=== PATIENT | female | born 1985 | race Caucasian/White ===

== ENCOUNTER 2019-06-29 10:06 | Outpatient (RCR) | payer BC, SELFPAY ==
[2019-06-29] MEDS: RHO(D) IMMUNE GLOBULIN 300 MCG SYRINGE IM (19:54)
== END 2019-08-08 08:19 | disposition home or self-care (01) ==
LOC: ANHOBOP 10:06
PROVIDERS: Visit Provider Advanced Practice Midwife
DX: Z29.13 Encounter for prophylactic Rho(D) immune globulin (principal); O36.0930 Maternal care for other rhesus isoimmunization, third trimester, not applicable or unspecified; Z3A.00 Weeks of gestation of pregnancy not specified
CPT/HCPCS: 36415; 86900; 86901; 90384; 96372; J2790

== ENCOUNTER 2019-09-20 06:12 | Inpatient (IN) | payer BC, SELFPAY ==
[2019-09-20] VITALS (57 sets, daily range): BP systolic 79–142; BP diastolic 40–89; PULSE 64–155; RESP 16–18; TEMP 36.8–37.4; O2SAT 98–100; BMI 25.0
[2019-09-20] MEDS: LACTATED RINGERS 1,000 ML 125 ML IV CONT ×2 (06:58→11:11)
[2019-09-20] MEDS: OXYTOCIN 30 UNITS/NS 500 ML 30 UNITS/500 ML BAG IV CONT (06:59)
[2019-09-20 07:11] LABS: Basophils Percent Auto 0.3 % (0.2-1.2); Eosinophils Absolute Auto 0.1 K/mm3 (0-0.3); Eosinophils Percent Auto 1.2 % (0-4.4); Hematocrit 38.2 % (37.0-47.0); Hemoglobin 12.7 g/dL (12.0-15.0); Immature Granulocyte Absolute 0.06 K/mm3 (0.00-0.031); Immature Granulocyte Percent A 0.6 % (0-0.5); Lymphocytes Absolute Auto 2.73 K/mm3 (0.9-3.2); Lymphocytes Percent Auto 29.3 % (18.3-44.2); Mean Corpuscular HGB Conc 33.2 g/dl (32-36); Mean Corpuscular Hemoglobin 29.3 pg (26-34); Mean Corpuscular Volume 88.2 fl (80-100); Mean Platelet Volume 10.8 fl (7.4-10.4); Monocytes Absolute Auto 0.6 K/mm3 (0.1-0.6); Monocytes Percent Auto 6.9 % (2.6-8.5); Neutrophils Absolute Auto 5.8 K/mm3 (1.3-6.7); Neutrophils Percent Auto 61.7 % (45.5-73.1); Platelet Count Result 241 k/mm3 (150-375); Red Blood Count 4.33 M/mm3 (4.2-5.4); Red Cell Distribution Width 14.6 % (11.5-14.5); White Blood Count 9.3 K/mm3 (4.5-10.0)
--- NOTE | 2019-09-20 07:49 | WPDOBADMIT ---
Obstetrics - Admit Note Admission Note: 34 y/o @ 40 weeks here for elective induction of labor. Cervix 4/-2 AROM small amount of clear odorless fluid. Anticipate record reviewed. No pertinent additions to the history and/or any subsequent changes in the physical findings that are not consistent with the expected course of the were found. Additions to the history and/or subsequent changes in the physical findings follow. None.
--- NOTE | 2019-09-20 08:44 | LDADM ---
This patient, Teressa Cadena, was admitted to Labor/Delivery/Recovery 103 on 09/20/19 at 06:12. Plans for labor, pain management and were discussed with patient. Patient/family oriented to hospital policies and general routines including ID bracelet, bed and alarms, visiting hours, pain management, procedures, bathroom and other care routines, personal items, smoking policy, room service/diet and guest tray routines, infant security routines, and visiting hours. Patient/Family are encouraged to report perceived risks to care and to ask questions if they do not understand what they are told or what they should do. See OBIX for further documentation.
[2019-09-20 10:24] LABS: Rapid Plasma Reagin Non-Reactive (NonReactive)
--- NOTE | 2019-09-20 11:53 | WPDANESEPPF ---
Anes - Initial Pre Proc Eval Date/Time: 09/20/19 11:53 Surgeon: Benjamin Joseph MD Pre Op Diagnosis: Induction of Labor Patient Data Age: 34 Gender: F Height: 5 ft 9 in Weight: 77 kg Last Vital Signs Temp 36.8 C 09/20/19 10:05 Pulse 98 09/20/19 11:50 BP 102/60 09/20/19 11:50 Pulse Ox 100 09/20/19 11:51 Allergies Allergy/AdvReac Type Severity Reaction Status Date / Time Sulfa (Sulfonamide Allergy Unknown Unverified 07/01/17 14:33 Antibiotics) Home Medications Medication Instructions Recorded Confirmed Type PNV cmb#95-ferrous fumarate-FA 1 tablet PO DAILY 08/21/19 08/21/19 History [] cholecalciferol (vitamin D3) 25 mcg PO DAILY 08/21/19 08/21/19 History [Vitamin D3] ferrous sulfate [Iron (ferrous 325 mg PO DAILY 08/21/19 08/21/19 History sulfate)] Laboratory Tests 09/20/19 09/20/19 09/20/19 06:51 06:51 06:51 WBC 9.3 K/mm3 K/mm3 (4.5-10.0) RBC 4.33 M/mm3 M/mm3 (4.2-5.4) Hgb 12.7 g/dL g/dL (12.0-15.0) Hct 38.2 % % (37.0-47.0) MCV 88.2 fl fl (80-100) MCH 29.3 pg pg (26-34) MCHC 33.2 g/dl g/dl (32-36) RDW 14.6 % H % (11.5-14.5) Plt Count 241 k/mm3 k/mm3 (150-375) MPV 10.8 fl H fl (7.4-10.4) Immature Gran % (Auto) 0.6 % H % (0-0.5) Neut % (Auto) 61.7 % % (45.5-73.1) Lymph % (Auto) 29.3 % % (18.3-44.2) [place] % (Auto) 6.9 % % (2.6-8.5) Eos % (Auto) 1.2 % % (0-4.4) Baso % (Auto) 0.3 % % (0.2-1.2) Lymph # (Auto) 2.73 K/mm3 K/mm3 (0.9-3.2) [place] # (Auto) 0.6 K/mm3 K/mm3 (0.1-0.6) Eos # (Auto) 0.1 K/mm3 K/mm3 (0-0.3) Baso # (Auto) 0.0 K/mm3 K/mm3 (0.0-0.1) Abs Immat Gran (auto) 0.06 K/mm3 H K/mm3 (0.00-0.031) Absolute Neuts (auto) 5.8 K/mm3 K/mm3 (1.3-6.7) Absolute Nucleated RBC 0.0 K/mm3 K/mm3 (0.0-0.012) Nucleated RBC % 0.0 % % (0.0-0.2) RPR Non-reactive (NonReactive) Blood Type A Negative Antibody Screen Negative Patient hx anesthesia problems: none Family hx anesthesia problems: none PMFSH Social History Social History Smoking status: Never smoker Substance use: never Gender identity (if verbalized by the patient): Female Spiritual care concerns: No Anes - Eval Final PreProcedure Day of Procedure 09/20/19 11:53 Patient weight: normal Neurological: alert and oriented ASA classification: II Emergent: no Anesthetic plan: proceed Anesthesia type and monitoring: regional epidural and standard monitoring Informed Consent: The patient's anesthetic plan and its attendant risks and benefits were discussed with the patient/family/POA. Questions were solicited and answers provided to the satisfaction of the patient/family/POA.
--- NOTE | 2019-09-20 12:38 | PM.OBPRVD ---
OB - Delivery Note Procedure Delivery date: 09/20/19 Induction method: per pitocin protocol Delivery monitor: external FHT and external uterine Episiotomy description: None Laceration description: Perineal - 1st Degree Delivery repair: vicryl Estimated blood loss (mL): 92 Anesthesia type: Epidural Baby Date of : 09/20/19 Time of : 12:23 Weeks of gestation at delivery: 40 Weight (pounds): 8 Weight (ounces): 9 presentation: vertex position: Right Occiput Anterior Placenta delivery description: Spontaneous cord vessel description: 3 Vessels score one minute: 9 score five minutes: 9 Narrative: Mother and baby in stable condition. Cord gasses collected by staff.
[2019-09-20] MEDS: BENZOCAINE 20% AER SPR (*SP) 56 GM CAN 1 SPRAY TOPICAL (14:58)
[2019-09-20] MEDS: WITCH HAZEL 40 PADS 1 PAD TOPICAL (14:58)
--- NOTE | 2019-09-20 15:27 | PC.NURSE ---
Patient transferred to post room #290. Support person present. Oriented to unit, room, information board, rooming in, admission packet and security measures. Patient verbalizes understanding.
[2019-09-20] MEDS: ACETAMINOPHEN 325 MG TABLET 650 MG PO ×2 (17:23→23:01)
[2019-09-20] MEDS: IBUPROFEN 600 MG TABLET PO (20:37)
[2019-09-21] MEDS: IBUPROFEN 600 MG TABLET PO ×3 (04:44→19:05)
[2019-09-21 05:41] LABS: Hematocrit 34.2 % (37.0-47.0); Hemoglobin 11.2 g/dL (12.0-15.0)
--- NOTE | 2019-09-21 07:27 | PM.OBPNVD ---
OB - PN: Subj Subjective Date/time seen: 09/21/19 07:27 Patient comments: no complaints, pain well controlled and other (Lochia similar to menses) baby status: doing well OB - PN: Obj Data Labs CBC & Chem 7: 09/21/19 04:42 Labs: Laboratory Results - last 24 hr 09/20/19 09/20/19 09/21/19 06:51 06:51 04:42 Hgb 11.2 L Hct 34.2 L RPR Non-reactive Blood Type A Negative Antibody Screen Negative Screen Baby's Blood Type Baby's CODY Doses of RhIg Required 09/21/19 04:42 Hgb Hct RPR Blood Type A Negative Antibody Screen Negative Screen Negative Baby's Blood Type O pos Baby's CODY Negative Doses of RhIg Required 1 OB - PN A/P Plan day: 1 (s/p vaginal delivery, doing well) Plan: routine care Time Spent With Patient Time: Total time spent is greater than 50% in coordination of care (as documented) at patient's floor/unit and/or counseling patient: Exam Const: General: no acute distress GI: Inspection: other (Fundus firm and nontender at umbilicus) GI Palp: Yes Soft to palpation and No Tenderness to palpation present (GI) Extrem: General: no edema
[2019-09-21 08:30] VITALS: BP 112/76; PULSE 74; RESP 16; TEMP 36.6; O2SAT 100
[2019-09-21] MEDS: DOCUSATE SODIUM 100 MG CAPSULE PO (09:00)
[2019-09-21] MEDS: ACETAMINOPHEN 325 MG TABLET 650 MG PO ×2 (09:00→14:53)
[2019-09-21] MEDS: MULTIVIT/MIN/PREN/FOL AC/IRON TABLET 1 TAB PO (09:00)
--- NOTE | 2019-09-21 10:40 | PC.NURSE ---
Mother called out for assist with feeding, reporting tenderness. Reviewed feeding cues, frequencies, duration of feedings, feeding elimination flow sheet, and signs of adequate intake. Demonstrated stimulation techniques to wake for feeding. Observed mother latching in cradle positioning allowing to self attach with shallow latch. Reviewed positioning/alignment cross cradle, holding breast in U hold and asymmetrical latch on. was able to latch correctly. nursed eagerly, with steady draws and frequent swallowing noted. Reviewed signs of a correct latch, effective nursing and suck swallow ratio. was able to maintain latch without discomfort to mother. Mother reports infant has not been latching as deeply or feeding as continuous. Nipple care reviewed. Suggested mother stimulate while feeding to keep infant awake and nursing effectively for increased intake and assist with maintaining deep latch. Instructed mother to call out for RN assistance if she is unable to latch for feeding or she has discomfort with nursing. Instructed feeding should be initiated three hours from start of last feeding or if feeding cues are noted before. Mother voiced understanding of information shared.
--- NOTE | 2019-09-21 14:26 | WPDANLDPN2 ---
Anes-Prog Note L&D Date/Time: 09/21/19 14:26 Comfortable throughout: labor and delivery Neuraxial method: epidural Epidural/Spinal procedure site: clean & non-tender Neuro status: Neuro function grossly intact. Cardiovascular status: normal Respiratory status: normal Airway patency: baseline Mental status: baseline Post-Op hydration status: normal Vital Signs: Last Vital Signs Temp 98 F 09/21/19 08:30 Pulse 74 09/21/19 08:30 Resp 16 09/21/19 08:30 BP 112/76 09/21/19 08:30 Pulse Ox 100 09/21/19 08:30 Patient feedback: Patient satisfied with anesthetic care.
[2019-09-21] MEDS: RHO(D) IMMUNE GLOBULIN 300 MCG SYRINGE IM (14:54)
[2019-09-21 20:00] VITALS: BP 118/73; PULSE 87; RESP 18; TEMP 36.3
[2019-09-22] MEDS: ACETAMINOPHEN 325 MG TABLET 650 MG PO (02:20)
--- NOTE | 2019-09-22 07:52 | PM.OBPNVD ---
OB - PN: Subj Subjective Date/time seen: 09/22/19 07:52 Patient comments: no complaints, pain well controlled and tolerating diet OB - PN: Obj Data Labs CBC & Chem 7: 09/21/19 04:42 Labs: Laboratory Results - last 24 hr 09/21/19 04:42 Blood Type A Negative Antibody Screen Negative Screen Negative Baby's Blood Type O pos Baby's CODY Negative Doses of RhIg Required 1 OB - PN A/P Plan day: 2 Plan: routine care and discharge home Time Spent With Patient Time: Total time spent is greater than 50% in coordination of care (as documented) at patient's floor/unit and/or counseling patient: Exam Const: General: comfortable and no acute distress Resp: Effort & Inspection: normal respiratory effort Auscultation: no rales, no rhonchi and no wheezes Cardio: Rate: regular rate Heart sounds: no click, no murmurs and no rubs GI: GI Palp: Yes Soft to palpation and No Tenderness to palpation present (GI) Auscultation: normal bowel sounds Extrem: General: normal to inspection, no pedal edema and no calf tenderness
--- NOTE | 2019-09-22 07:53 | PM.OBDSVD ---
DS: Discharge Diagnosis Discharge Diagnosis (1) Term : Code(s): Z34.90 - Encounter for supervision of normal , unspecified, unspecified trimester Status: Acute OB - DS: Summary OB Procedures : None OB Procedures Intrapartum: Spontaneous Vag Delivery OB Procedures: : None Peripartum Data Infant Delivery Method: Natural Vaginal complications: none Status at Discharge Functional status at discharge: independent ambulation Time Spent with Patient Time attestation: Total time spent providing and/or coordinating discharge services: DS: Data Data Completed and Pending Labs on day of discharge: Labs from last 24 hours 09/21/19 04:42 Blood Type A Negative Antibody Screen Negative Screen Negative Baby's Blood Type O pos Baby's CODY Negative Doses of RhIg Required 1 Discharge Plan Discharge Consulting providers: Amando Steven Discharging Clinician: Benjamin Joseph Patient Disposition: Home, Self-Care Activity: pelvic rest Diet: regular Patient Instructions: Antibiotic Form Stand Alone Forms: General Discharge Information Follow-up/Referrals: Benjamin Joseph MD [Physician] - Discharge Medications: Continued ferrous sulfate [Iron (ferrous sulfate)] 325 mg (65 mg iron) Tablet 325 mg PO DAILY RF: 0 cholecalciferol (vitamin D3) [Vitamin D3] 25 mcg (1,000 unit) Capsule 25 mcg PO DAILY RF: 0 PNV cmb#95-ferrous fumarate-FA [] 28 mg iron- 800 mcg Tablet 1 tablet PO DAILY RF: 0 Date of admission: 09/20/19 06:12 Primary Care Provider: PHYSICIAN,CYTOGENETIC TECHNICIAN Admitting Provider: Benjamin Joseph Attending physician on admission: Benjamin Joseph
[2019-09-22 08:20] VITALS: BP 109/64; PULSE 72; RESP 16; TEMP 36.3
[2019-09-22] MEDS: MULTIVIT/MIN/PREN/FOL AC/IRON TABLET 1 TAB PO (09:10)
[2019-09-22] MEDS: IBUPROFEN 600 MG TABLET PO (09:10)
[2019-09-22] MEDS: TETANUS,DIPHTHERIA,AC PERTUSSIS ADULT (0.5 ML) BOOSTRIX IM (09:11)
--- NOTE | 2019-09-22 11:30 | PC.NURSE ---
Observed mother is able to independently latch with appropriate positioning/alignment. She denies any nipple discomfort, is feeding as required and waking infant to feed if needed. has had 9 effective feedings in the past 24 hours, and is currently meeting outcomes for weight, output, jaundice and feeding frequencies. Mother states she feels confident to continue effective at home, reporting previous suggestions for deep latch have greatly helped. Reviewed transition to breast milk, signs of adequate intake, and engorgement/relief. Instructed to call ICP if intake/output less than required. Reviewed regular medications mother is taking. Information provided per Allison. Reviewed community resources on the [facility] website and in the Mom/Baby guide. Information on outpatient services provided. Mother has no further questions at this time.
[2019-09-25 11:03] VITALS: BP 119/80; PULSE 97; RESP 16; TEMP 36.6; O2SAT 100
== END 2019-09-22 12:07 | disposition home or self-care (01) | DRG 807 ==
LOC: ANHLDR 06:15 → ANHOB2 15:46
PROVIDERS: Advanced Practice Midwife; Admitting Provider Obstetrics & Gynecology; Visit Provider Obstetrics & Gynecology
DX: O70.0 First degree perineal laceration during delivery (principal); Z37.0 Single live birth; Z3A.40 40 weeks gestation of pregnancy
CPT/HCPCS: 36415; 85014; 85018; 85025; 85461; 86592; 86850; 86900; 86901; 90384; 90715; A9270; J2590; J2790; J2795; J7120

== ENCOUNTER 2021-08-18 10:51 | Emergency (ER) | payer BC, SELFPAY ==
[2021-08-18 11:14] VITALS: BP 124/81; PULSE 100; RESP 18; TEMP 36.3; O2SAT 100
--- NOTE | 2021-08-18 11:35 | ED.URI ---
HPI - URI/Sore Throat General Chief Complaint: Upper Respiratory Infection Stated Complaint: sorethroat Time Seen by Provider: 08/18/21 11:35 Source: patient Mode of arrival: ambulatory Limitations: no limitations History of Present Illness HPI Narrative: 36-year-old female presents with complaint of fatigue, sweating, sore throat 3 days. Reports that swallowing feels like swallowing razor blades . Positive nausea but patient is . Due date is March 21. Denies cough, congestion. No known strep exposure. All systems reviewed and negative except as noted above. Related Data Home Medications Medication Instructions Recorded Confirmed vits 75-iron 28 mg-folic 1 pkg PO DAILY 08/18/21 08/18/21 acid 800 mcg-omega3 440 mg oral pack Allergies Allergy/AdvReac Type Severity Reaction Status Date / Time Sulfa (Sulfonamide Allergy Mild Itching Verified 08/18/21 11:04 Antibiotics) Review of Systems Review of Systems: CONSTITUTIONAL: Denies fever, chills. Reports sweats and fatigue EYES: Denies visual changes, redness, or discharge. ENT: Denies rhinorrhea, congestion. Reports sore throat. Denies otalgia. CARDIOVASCULAR: Denies chest pain, palpitations, or edema. RESPIRATORY: Denies cough or dyspnea. GASTROINTESTINAL: Denies abdominal pain, nausea, vomiting, or diarrhea. GENITOURINARY: Denies dysuria or hematuria. SKIN: Denies rash or itching. MUSCULOSKELETAL: Denies back pain, joint pain, or myalgia. NEUROLOGIC: Denies headache, numbness, or weakness. PSYCHIATRIC: Denies anxiety or depression. All other systems reviewed are negative, except as documented in HPI. [facility] Past Medical History Medical History (Updated 08/18/21 @ 11:49 by Iza Pardo NP) Anxiety Encounter to establish care Family History Family History (Updated 08/22/20 @ 14:59 by Alyssa Sosa MA) Father Diabetes mellitus Hypertension Mother Hypertension Grandparent Diabetes mellitus Heart disease Social History Social History (Updated 08/22/20 @ 15:00 by Alyssa Sosa MA) Smoking status: Never smoker Alcohol intake: current Alcohol use details: beer/wine Substance use: never Gender identity (if verbalized by the patient): Female Spiritual care concerns: No Comments At time of signature, agree with nursing past medical, surgical, social and family history. There is no relevant family history pertinent to the presenting complaint. Exam Narrative: GENERAL: This is a well-nourished, well-developed patient, in no apparent distress. HEAD: normocephalic, atraumatic. EYES: PERRL. Sclera clear/white. Vision is grossly intact. EARS: External ears normal, auditory canals clear and without drainage, TMs normal without perforation. Hearing grossly intact. NOSE: External nose normal with no obvious nasal discharge, nares without redness, no rhinorrhea. THROAT: Mucous membranes moist, erythema posterior pharynx NECK: Neck supple, tender enlarged cervical lymph nodes, no masses or thyromegaly. CARDIOVASCULAR: Regular rate and rhythm without murmurs, gallops, or rubs. RESPIRATORY: Clear to auscultation. Breath sounds equal bilaterally. No wheezes, rales, or rhonchi. SKIN: warm, Dry, intact with no suspicious lesions or rash, good texture and turgor. NEURO: awake, alert, and oriented to person, place and time. There were no obvious focal neurologic abnormalities. EXTREMITIES: Normal range of motion to all extremities. Course Course Level of Care: Express Care Visit Vital Signs Vital signs: Vital Signs Temperature 36.3 C L 08/18/21 11:14 Pulse Rate 100 08/18/21 11:14 Respiratory Rate 18 08/18/21 11:14 Blood Pressure 124/81 08/18/21 11:14 Pulse Oximetry 100 08/18/21 11:14 Oxygen Delivery Room Air 08/18/21 11:14 Temperature 36.3 C L 08/18/21 11:14 Pulse Rate 100 08/18/21 11:14 Respiratory Rate 18 08/18/21 11:14 Blood Pressure 124/81 08/18/21 11
== END 2021-08-18 11:51 | disposition home or self-care (01) ==
PROVIDERS: Emergency Provider Nurse Practitioner Family; PCP Nurse Practitioner Family
DX: O99.519 Diseases of the respiratory system complicating pregnancy, unspecified trimester (principal); Z3A.00 Weeks of gestation of pregnancy not specified; J02.0 Streptococcal pharyngitis
CPT/HCPCS: 87880; 99213; G0463

== ENCOUNTER 2022-01-22 09:17 | Outpatient (RCR) | payer BC, SELFPAY ==
[2022-01-25] MEDS: RHO(D) IMMUNE GLOBULIN 300 MCG/2 ML SYRINGE IM (12:08)
== END 2022-04-22 23:59 | disposition home or self-care (01) ==
LOC: ANHLAB 09:17
PROVIDERS: PCP Nurse Practitioner Family; Visit Provider Obstetrics & Gynecology
DX: Z29.13 Encounter for prophylactic Rho(D) immune globulin (principal); O36.0130 Maternal care for anti-D [Rh] antibodies, third trimester, not applicable or unspecified; Z3A.00 Weeks of gestation of pregnancy not specified
CPT/HCPCS: 36415; 85461; 86850; 86900; 86901; 90384; 96372; J2790

== ENCOUNTER 2022-03-21 05:13 | Inpatient (IN) | payer BC, SELFPAY ==
[2022-03-21] VITALS (63 sets, daily range): BP systolic 78–142; BP diastolic 51–97; PULSE 68–163; RESP 16–18; TEMP 36.6–37; O2SAT 99–100; BMI 23.4
--- NOTE | 2022-03-21 05:13 | LDADM ---
This patient, Teressa Cadena, was admitted to Labor/Delivery/Recovery 104 on 03/21/22 at 05:13. Plans for labor, pain management and were discussed with patient. Patient/family oriented to hospital policies and general routines including ID bracelet, bed and alarms, visiting hours, pain management, procedures, bathroom and other care routines, personal items, smoking policy, room service/diet and guest tray routines, security routines, and visiting hours. Patient/Family are encouraged to report perceived risks to care and to ask questions if they do not understand what they are told or what they should do. See OBIX for further documentation.
[2022-03-21 06:04] LABS: Basophils Percent Auto 0.5 % (0.2-1.2); Eosinophils Absolute Auto 0.1 K/mm3 (0-0.3); Eosinophils Percent Auto 1.4 % (0-4.4); Hematocrit 34.4 % (37.0-47.0); Immature Granulocyte Absolute 0.02 K/mm3 (0.00-0.031); Immature Granulocyte Percent A 0.3 % (0-0.5); Lymphocytes Absolute Auto 2.82 K/mm3 (0.9-3.2); Lymphocytes Percent Auto 36.8 % (18.3-44.2); Mean Corpuscular Hemoglobin 25.5 pg (26-34); Mean Corpuscular Volume 79.8 fl (80-100); Mean Platelet Volume 10.3 fl (7.4-10.4); Monocytes Absolute Auto 0.6 K/mm3 (0.1-0.6); Monocytes Percent Auto 7.7 % (2.6-8.5); Neutrophils Absolute Auto 4.1 K/mm3 (1.3-6.7); Neutrophils Percent Auto 53.3 % (45.5-73.1); Platelet Count Result 283 k/mm3 (150-375); Red Blood Count 4.31 M/mm3 (4.2-5.4); Red Cell Distribution Width 14.6 % (11.5-14.5); White Blood Count 7.7 K/mm3 (4.5-10.0)
[2022-03-21] MEDS: LACTATED RINGERS 1,000 ML 125 ML IV CONT ×2 (06:25→12:43)
[2022-03-21] MEDS: OXYTOCIN 30 UNITS/NS 500 ML 30 UNITS/500 ML BAG IV CONT (06:26)
--- NOTE | 2022-03-21 08:45 | WPDOBADMIT ---
Obstetrics - Admit Note Admission Note: record reviewed. No pertinent additions to the history and/or any subsequent changes in the physical findings that are not consistent with the expected course of the were found. IOL, /-2, anticipate vaginal delivery Additions to the history and/or subsequent changes in the physical findings follow. None.
--- NOTE | 2022-03-21 09:29 | PM.OBPNVD ---
OB - PN: Subj Subjective Date/time seen: 03/21/22 09:29 sve 2/80 /-2 AROM moderate amount of clear odorless fluid OB - PN: Obj Data Labs 03/21/22 05:50 Labs: Laboratory Results - last 24 hr 03/21/22 03/21/22 05:50 05:50 WBC 7.7 RBC 4.31 Hgb 11.0 L Hct 34.4 L MCV 79.8 L MCH 25.5 L MCHC 32.0 RDW 14.6 H Plt Count 283 MPV 10.3 Immature Gran % (Auto) 0.3 Neut % (Auto) 53.3 Lymph % (Auto) 36.8 [place] % (Auto) 7.7 Eos % (Auto) 1.4 Baso % (Auto) 0.5 Lymph # (Auto) 2.82 [place] # (Auto) 0.6 Eos # (Auto) 0.1 Baso # (Auto) 0.0 Abs Immat Gran (auto) 0.02 Absolute Neuts (auto) 4.1 Absolute Nucleated RBC 0.0 Nucleated RBC % 0.0 Blood Type A Negative Antibody Screen Positive CODY, Poly Interpret Negative OB - PN A/P Time Spent With Patient Time: Total time spent is greater than 50% in coordination of care (as documented) at patient's floor/unit and/or counseling patient:
--- NOTE | 2022-03-21 13:03 | WPDANESEPPF ---
Anes - Initial Pre Proc Eval Procedure: labor epidural Date/Time: 03/21/22 13:03 Surgeon: Angelica Chahal CNM Pre Op Diagnosis: labor pain Pre Op Diagnosis: IOL Patient Data Age: 36 Gender: F Height: Weight: Last Vital Signs Temp 36.6 C 03/21/22 11:30 Pulse 75 03/21/22 13:01 BP 139/85 03/21/22 13:01 Pulse Ox 100 03/21/22 12:59 Allergies Allergy/AdvReac Type Severity Reaction Status Date / Time Sulfa (Sulfonamide Allergy Mild Itching Verified 03/21/22 05:47 Antibiotics) Home Medications Medication Instructions Recorded Confirmed Type vits 75-iron 28 mg-folic 1 pkg PO DAILY 08/18/21 03/21/22 History acid 800 mcg-omega3 440 mg oral pack Laboratory Tests 03/21/22 03/21/22 03/21/22 05:50 05:50 05:50 WBC 7.7 K/mm3 K/mm3 (4.5-10.0) RBC 4.31 M/mm3 M/mm3 (4.2-5.4) Hgb 11.0 g/dL L g/dL (12.0-15.0) Hct 34.4 % L % (37.0-47.0) MCV 79.8 fl L fl (80-100) MCH 25.5 pg L pg (26-34) MCHC 32.0 g/dl g/dl (32-36) RDW 14.6 % H % (11.5-14.5) Plt Count 283 k/mm3 k/mm3 (150-375) MPV 10.3 fl fl (7.4-10.4) Immature Gran % (Auto) 0.3 % % (0-0.5) Neut % (Auto) 53.3 % % (45.5-73.1) Lymph % (Auto) 36.8 % % (18.3-44.2) [place] % (Auto) 7.7 % % (2.6-8.5) Eos % (Auto) 1.4 % % (0-4.4) Baso % (Auto) 0.5 % % (0.2-1.2) Lymph # (Auto) 2.82 K/mm3 K/mm3 (0.9-3.2) [place] # (Auto) 0.6 K/mm3 K/mm3 (0.1-0.6) Eos # (Auto) 0.1 K/mm3 K/mm3 (0-0.3) Baso # (Auto) 0.0 K/mm3 K/mm3 (0.0-0.1) Abs Immat Gran (auto) 0.02 K/mm3 K/mm3 (0.00-0.031) Absolute Neuts (auto) 4.1 K/mm3 K/mm3 (1.3-6.7) Absolute Nucleated RBC 0.0 K/mm3 K/mm3 (0.0-0.012) Nucleated RBC % 0.0 % % (0.0-0.2) RPR Pending Blood Type A Negative Antibody Screen Positive Antibody Identification Inconclusive Antigen Identification Cancelled CODY, IgG Interpret Not Performed CODY, Poly Interpret Negative CODY, Complement Interp Not Performed Patient hx anesthesia problems: none Family hx anesthesia problems: none Results Review: All pre-operative results and documents have been reviewed as part of the pre-operative evaluation. [facility] Past Medical History Medical History (Updated 08/22/21 @ 15:58 by Cailin Loza NP) Anxiety Encounter to establish care Hyperlipidemia Vitamin D deficiency Family History Family History Father Diabetes mellitus Hypertension Mother Hypertension Grandparent Diabetes mellitus Heart disease Social History Social History Smoking status: Never smoker Alcohol intake: current Alcohol use details: beer/wine Substance use: never Lack of Transportation: No Lack of Food: Never True Current Housing: I Have Housing Concerned About Future Housing: No Difficulty Paying Gas/Electric Bills: No Difficulty Paying for Meds: No Currently Unemployed: No Education: Master's Degree or Higher Difficulty w/ Childcare or Family Care: No Gender identity (if verbalized by the patient): Female Spiritual care concerns: No Anes - Eval Final PreProcedure Day of Procedure 03/21/22 13:03 Heart: regular rate and rhythm Lungs: clear to auscultation and normal air movement Airway: Mallampati scale class 1 Neurological: alert and oriented Results Review: All pre-operative results and documents have been reviewed as part of the pre-operative evaluation. Informed Consent: The patient's anesthetic plan and its attendant risks and benefits were discussed with the patient/family/POA. Questions were solicited and an
--- NOTE | 2022-03-21 13:59 | P.PCNOB_ITS ---
OB - Delivery Note Procedure Delivery date: 03/21/22 Procedure: vaginal delivery Induction method: AROM and Per Pitocin Protocol Delivery monitor: External FHT and External Uterine Route of delivery: Indication for instrumentation: nonreassuring FHR tracing Episiotomy description: None Laceration Description: Perineal - 2nd Degree Delivery repair: vicryl Specimen: No Quantitative Blood Loss (ml): 60 Anesthesia type: Epidural Disposition: Floor [place] Baby Date of : 03/21/22 Time of : 13:46 Weeks of gestation at delivery: 39 Infant gender: Female Weight (pounds): 8 Weight (ounces): 4 presentation: vertex position: Other (occiput posterior) Placenta delivery description: Spontaneous Cord Vessel Description: 3 Vessels, Clamped/Cut and Delayed Cord Clamping score one minute: 9 score five minutes: 9 Narrative: pt pushing with minimal descent of head, heart rate starting to decelerate with each contraction. Pt continued to push and fetus was starting to descend. At about 9 minutes prior to delivery FHR down to the 60's. Dr. Real called and was enroute, and station +2 and kiwi applied, baby OP and pressure to within green range and was used through 4 pushes and 2 pop offs, head delivered OP and the rest of the baby delivered without difficulty. mother and baby skin to skin and in stable condition with apgars of 9 [address] real at bs and reviewed
[2022-03-21] MEDS: OXYTOCIN 30 UNITS/NS 500 ML 30 UNITS/500 ML BAG 125 UNITS IV CONT (14:24)
[2022-03-21] MEDS: IBUPROFEN 600 MG TABLET PO ×2 (14:29→20:20)
[2022-03-21] MEDS: WITCH HAZEL 40 PADS 1 PAD TOPICAL (14:30)
[2022-03-21] MEDS: BENZOCAINE 20% AER SPR (*SP) 56 GM CAN 1 SPRAY TOPICAL (14:30)
[2022-03-21] MEDS: ACETAMINOPHEN 325 MG TABLET 650 MG PO (18:30)
--- NOTE | 2022-03-21 19:04 | OBPPTRN ---
1717 Patient transferred to post room #290 via W/C. Support person present. Oriented to unit, room, information board, rooming in, admission packet and security measures. Patient verbalizes understanding.
[2022-03-22] MEDS: ACETAMINOPHEN 325 MG TABLET 650 MG PO (00:10)
[2022-03-22] MEDS: IBUPROFEN 600 MG TABLET PO ×4 (02:32→22:45)
[2022-03-22 04:00] VITALS: BP 108/66; PULSE 76; RESP 18; TEMP 36.5
[2022-03-22 05:13] LABS: Hematocrit 31.7 % (37.0-47.0); Hemoglobin 9.9 g/dL (12.0-15.0)
[2022-03-22 08:00] VITALS: BP 110/71; PULSE 71; RESP 16; TEMP 36.6; O2SAT 100
--- NOTE | 2022-03-22 08:02 | WPDANLDPN2 ---
Anes-Prog Note L&D Date/Time: 03/22/22 08:02 Comfortable throughout: labor Neuraxial method: epidural Epidural/Spinal procedure site: clean & non-tender Neuro status: Neuro function grossly intact. Cardiovascular status: normal Respiratory status: normal Airway patency: baseline Mental status: baseline Vital Signs: Last Vital Signs Temp 36.5 C 03/22/22 04:00 Pulse 76 03/22/22 04:00 Resp 18 03/22/22 04:00 BP 108/66 03/22/22 04:00 Pulse Ox 100 03/21/22 17:10 O2 Del Method Room Air 03/21/22 20:20 Pain score (VAS): <3 I/O: Intake & Output 03/21/22 03/22/22 03/22/22 23:59 07:59 15:59 Intake Total 250 Output Total 140 Balance 110 Patient feedback: Patient satisfied with anesthetic care.
--- NOTE | 2022-03-22 09:04 | PM.OBPNVD ---
OB - PN: Subj Subjective Date/time seen: 03/22/22 09:04 Patient comments: no complaints baby status: doing well OB - PN: Obj Data Labs 03/22/22 04:10 Labs: Laboratory Results - last 24 hr 03/21/22 03/22/22 03/22/22 05:50 04:10 04:10 Hgb 9.9 L Hct 31.7 L Blood Type A Negative Antibody Screen TNP Antibody Identification Inconclusive Cancelled Antigen Identification Cancelled Cancelled CODY, IgG Interpret Not Performed Cancelled CODY, Poly Interpret Cancelled CODY, Complement Interp Not Performed Cancelled Screen Negative Baby's Blood Type A pos Baby's CODY Negative Doses of RhIg Required 1 OB - PN A/P Plan day: 1 Plan: routine care Time Spent With Patient Time: Total time spent is greater than 50% in coordination of care (as documented) at patient's floor/unit and/or counseling patient: Time with patient: less than 15 minutes Review of Systems Review of Systems: All systems reviewed & are unremarkable except as noted in HPI and below Exam Narrative: Fundus firm and vaginal flow controlled. No lower ext redness, warmth, or edema. Negative homans. Const: General: comfortable Chest: Breast/axilla inspection: normal inspection of the breasts Resp: Effort & Inspection: normal respiratory effort Cardio: Rate: regular rate GI: GI Palp: Yes Soft to palpation Psych: Appearance: grossly normal Affect: normal affect Attitude: cooperative Thought content: Yes Normal thought content present Judgement: Good judgement present (Psych)
[2022-03-22] MEDS: MULTIVIT/MIN/PREN/FOL AC/IRON TABLET 1 TAB PO (09:16)
[2022-03-22] MEDS: POLYSACCHARIDE IRON COMPLEX 150 MG CAPSULE PO ×2 (09:16→16:38)
[2022-03-22] MEDS: DOCUSATE SODIUM 100 MG CAPSULE PO ×2 (09:16→16:39)
[2022-03-22] MEDS: LORATADINE/PSEUDOEPHEDRINE (*CRX) 10/240 MG TABLET ER 24 HR 1 TAB PO (11:19)
[2022-03-22 13:00] VITALS: BP 108/73; PULSE 86; RESP 16; TEMP 37; O2SAT 99
[2022-03-22] MEDS: RHO(D) IMMUNE GLOBULIN 300 MCG/2 ML SYRINGE IM (13:55)
[2022-03-22 20:02] VITALS: BP 124/74; PULSE 86; RESP 18; TEMP 36.9; O2SAT 98
[2022-03-23] MEDS: IBUPROFEN 600 MG TABLET PO ×2 (04:41→10:58)
--- NOTE | 2022-03-23 06:33 | PM.OBDSVD ---
DS: Admitting Diagnosis Discharge Date 03/23/22 Admitting Diagnosis term OB - DS: Summary OB Procedures : None OB Procedures Intrapartum: Spontaneous Vag Delivery OB Procedures: : None Time Spent with Patient Time attestation: Total time spent providing and/or coordinating discharge services: DS: Data Data Completed and Pending Labs on day of discharge: Labs from last 24 hours 03/22/22 04:10 Blood Type A Negative Antibody Screen TNP Antibody Identification Cancelled Antigen Identification Cancelled CODY, IgG Interpret Cancelled CODY, Poly Interpret Cancelled CODY, Complement Interp Cancelled Screen Negative Baby's Blood Type A pos Baby's CODY Negative Doses of RhIg Required 1 Discharge Plan Discharge Discharging Clinician: Benjamin Joseph Patient Disposition: Home, Self-Care Activity: pelvic rest Diet: regular Patient Instructions: Antibiotic Form Stand Alone Forms: General Discharge Information Follow-up/Referrals: Benjamin Joseph MD [Physician] - Discharge Medications: Continued Daily [phone] mg-mcg-mg Combo Pack 1 pkg PO DAILY Date of admission: 03/21/22 05:13 Primary Care Provider: Cailin Loza Admitting Provider: Benjamin Joseph Attending physician on admission: Angelica Chahal Condition: Stable
--- NOTE | 2022-03-23 06:34 | PM.OBPNVD ---
OB - PN: Subj Subjective Date/time seen: 03/23/22 06:34 Patient comments: no complaints, pain well controlled and tolerating diet OB - PN: Obj Data Labs 03/22/22 04:10 Labs: Laboratory Results - last 24 hr 03/22/22 04:10 Blood Type A Negative Antibody Screen TNP Antibody Identification Cancelled Antigen Identification Cancelled CODY, IgG Interpret Cancelled CODY, Poly Interpret Cancelled CODY, Complement Interp Cancelled Screen Negative Baby's Blood Type A pos Baby's CODY Negative Doses of RhIg Required 1 OB - PN A/P Plan day: 2 Plan: routine care and discharge home Time Spent With Patient Time: Total time spent is greater than 50% in coordination of care (as documented) at patient's floor/unit and/or counseling patient: Exam Const: General: comfortable and no acute distress Resp: Effort & Inspection: normal respiratory effort Auscultation: no rales, no rhonchi and no wheezes Cardio: Rate: regular rate Heart sounds: no click, no murmurs and no rubs GI: GI Palp: Yes Soft to palpation and No Tenderness to palpation present (GI) Auscultation: normal bowel sounds Extrem: General: normal to inspection, no pedal edema and no calf tenderness
[2022-03-23 08:05] LABS: Rapid Plasma Reagin Non-Reactive (NonReactive)
[2022-03-23 08:35] VITALS: BP 111/77; PULSE 75; RESP 16; TEMP 37.1; O2SAT 100
[2022-03-23] MEDS: MULTIVIT/MIN/PREN/FOL AC/IRON TABLET 1 TAB PO (10:56)
[2022-03-23] MEDS: POLYSACCHARIDE IRON COMPLEX 150 MG CAPSULE PO (10:56)
[2022-03-23] MEDS: DOCUSATE SODIUM 100 MG CAPSULE PO (10:57)
[2022-03-23] MEDS: LORATADINE/PSEUDOEPHEDRINE (*CRX) 10/240 MG TABLET ER 24 HR 1 TAB PO (10:57)
--- NOTE | 2022-03-23 12:48 | PC.NURSE ---
0900 Patient viewed the discharge video Mother [facility] Baby [facility], The First Two Weeks . Patient was given the opportunity and encouraged to ask questions. Patient verbalized understanding of information shared and has been given the mother/baby guide for home reference.
[2022-03-25 10:13] VITALS: BP 131/88; PULSE 83; RESP 16; TEMP 36.6; O2SAT 100
== END 2022-03-23 13:15 | disposition home or self-care (01) | DRG 807 ==
LOC: ANHLDR 05:21 → ANHOB2 03-23 06:34 → ANHLDR 03-25 10:51 → ANHOB2 03-25 10:51
PROVIDERS: Advanced Practice Midwife; Admitting Provider Obstetrics & Gynecology; PCP Nurse Practitioner Family; Visit Provider Obstetrics & Gynecology
DX: O76 Abnormality in fetal heart rate and rhythm complicating labor and delivery (principal); Z37.0 Single live birth; O70.1 Second degree perineal laceration during delivery; Z3A.39 39 weeks gestation of pregnancy
CPT/HCPCS: 36415; 85014; 85018; 85025; 85461; 86592; 86850; 86880; 86900; 86901; 86902; 90384; A9270; J2590; J2790; J2795; J7120